=== PATIENT | female | born 1980 | race American Indian/Alaskan Native ===

== ENCOUNTER 2017-05-09 10:31 | Emergency (ER) | payer MEDICAID, OTHER ==
[~2017-05-09] VITALS: Ht 160 cm; Wt 178.4 kg
[~2017-05-09 10:31] MED LIST: OXYC-302 PO
[2017-05-09] MEDS ORDERED: SODIUM CHLORIDE 0.9% 1,000 ML IV ONE (11:06)
[2017-05-09] MEDS ORDERED: PHENAZOPYRIDINE 200 MG TABLET PO ONE (11:30)
[2017-05-09] MEDS ORDERED: ONDANSETRON 2MG/ML, 2ML IVPush ONE (11:30)
[2017-05-09] MEDS ORDERED: MORPHINE SULFATE 4 MG/ML, 1ML IVPush ONE (11:30)
[2017-05-09] MEDS ORDERED: PHENAZOPYRIDINE 200 MG TABLET ONE (11:37)
[2017-05-09] MEDS ORDERED: MORPHINE SULFATE 4 MG/ML, 1ML ONE (11:56)
[2017-05-09] MEDS ORDERED: ONDANSETRON 2MG/ML, 2ML ONE (11:57)
[2017-05-09] MEDS ORDERED: CEFTRIAXONE PMX 1GM/50ML 50 ML IVPB ONE (12:00)
[2017-05-09 12:01] LABS: BLOOD UREA NITROGEN 20 mg/dL (7-18)
[2017-05-09 12:31] LABS: HCG UR OBC PASS
[2017-05-09] MEDS ORDERED: CEFTRIAXONE PMX 1GM/50ML 50 ML ONE (12:37)
[2017-05-09 13:00] VITALS: BP 116/76
== END 2017-05-09 13:23 | disposition home or self-care (01) ==
LOC: ED 11:42
DX: N10 Acute pyelonephritis (principal); N23 Unspecified renal colic; Z98.51 Tubal ligation status
CPT/HCPCS: 36415; 76770; 80048; 81001; 81025; 82040; 85025; 87040; 87077; 87086; 87186; 96361; 96365; 96375; 99285; J0696; J2405; J7030

== ENCOUNTER 2017-05-11 09:05 | Emergency (ER) | payer MEDICAID, OTHER ==
[~2017-05-11] VITALS: Ht 160 cm; Wt 180.5 kg
[2017-05-11 09:08] VITALS: BP 148/78
[2017-05-11 09:55] LABS: ASPARTATE AMINO TRANSFERASE 20 U/L (15-37); BLOOD UREA NITROGEN 15 mg/dL (7-18)
== END 2017-05-11 10:00 | disposition left against medical advice (07) ==
LOC: ED 09:37
DX: R30.0 Dysuria (principal); R10.9 Unspecified abdominal pain
CPT/HCPCS: 36415; 80053; 85025; 99284

== ENCOUNTER 2020-08-29 23:50 | Emergency (ER) | payer MEDICAID, OTHER ==
[~2020-08-29] VITALS: Ht 162.6 cm; Wt 174.9 kg
--- NOTE | 2020-08-30 00:45 | NUR ---
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
--- NOTE | 2020-08-30 01:28 | NUR ---
MED REQUESTED FROM PHARMACY
[2020-08-30] MEDS ORDERED: NITROFURANTOIN (MACROBID) 100 MG CAPSULE PO ONE (01:30)
[2020-08-30 02:10] VITALS: BP 138/83
--- NOTE | 2020-08-30 02:11 | NUR ---
PHARMACY CALLED FOR MEDICATION. PER PHARMACY THEY WILL SEND IT.
--- NOTE | 2020-08-30 02:30 | NUR ---
Patient medicated. Patient given discharge instructions and they have confirmed that they understand the instructions. Patient ambulatory with steady gait.
== END 2020-08-30 02:33 | disposition home or self-care (01) ==
LOC: ED 08-30 02:00
DX: N30.00 Acute cystitis without hematuria (principal); F17.200 Nicotine dependence, unspecified, uncomplicated; Z98.51 Tubal ligation status
CPT/HCPCS: 99283